=== PATIENT | male | born 1985 | race Caucasian/White ===

== ENCOUNTER 2021-11-04 04:59 | Emergency (ER) | payer OTHER, MEDICAID, SELFPAY ==
[2021-11-04 05:03] VITALS: BP 108/64; PULSE 75; RESP 18; TEMP 36.6; O2SAT 98
--- NOTE | 2021-11-04 05:32 | ED.GENADUL_ITS ---
Discharge Plan Disposition Patient Disposition: HOME Condition: Improving Discharge Details Chief Complaint: Nk/Back Pain Clinical Impression: Back pain Primary Care Provider: Unknown,Unknown ED Provider: Walter Lomeli Home Meds and New Rx's Prescriptions: No Action methadone 10 mg/5 mL solution 75 mg PO DAILY cyclobenzaprine 10 mg tablet 10 mg PO HS PRN (Reason: muscle spasm) Qty: 10 0RF Discharge Instructions Instructions: Back Pain (ED) Additional Instructions: Please follow-up with primary care physician referral. Stand Alone Forms: Work Release Medical Decision Making 36-year-old male history of opioid abuse currently on methadone, no recent change in dose, presents with acute on chronic lower back pain endorses remote injury at work several months ago, improvement on its own and with steroids in the past, recently visited urgent care for evaluation and was prescribed cyclobenzaprine and a steroid with some improvement, symptoms returned over the last several days, denies bowel or bladder incontinence denies numbness or weakness in lower extremities, no midline spinal tenderness on examination, no external signs of trauma, moving all extremities 5 out of 5 strength, alert oriented afebrile. Likely muscle spasm versus consider mildly herniated disc versus muscle strain versus sprain, low suspicion for UTI pyelonephritis or kidney stone, given patient's history of substance abuse must also consider or serious issue such as discitis or osteomyelitis of the spine or spinal epidural abscess however all of these are less likely given history and physical as well as normal vital signs and examination. We will send screening labs to assess for any elevation of white blood cells, will also send UA, will provide analgesia and anti-inflammatory in the form of Toradol and dexamethasone as well as Lidoderm patch. Likely will be discharged home with follow-up. 6: 11 patient resting comfortably no acute distress feeling relief after medications. Labs unremarkable. Likely muscle strain versus mild bulging disc. Lower suspicion for infectious process or acute neurologic process. Home care instructions and return precautions given. Will be connected with primary care physician in the community. HPI General Date/Time Provider Initiated Documentation: 11/04/21 05:08 . HPI Narrative: 36-year-old male history of opioid abuse, currently on methadone, presents with acute on chronic lower back pain hip pain and abdominal pain, endorses tweaking his back at work earlier this year favoring his right side, denies falls denies leg weakness or numbness, denies bowel or bladder incontinence, is ambulatory without assistance, denies fevers or chills. Had a prior evaluation as an outpatient improved after muscle relaxer and steroid Related Data Home Medications Medication Instructions Recorded Confirmed cyclobenzaprine 10 mg tablet 10 mg PO HS PRN muscle spasm #10 08/30/21 11/04/21 tabs methadone 10 mg/5 mL oral solution 75 mg PO DAILY 08/30/21 11/04/21 Previous Rx's Medication Instructions Recorded cyclobenzaprine 10 mg tablet 10 mg PO HS PRN muscle spasm #10 08/30/21 tabs Allergies Allergy/AdvReac Type Severity Reaction Status Date / Time No Known Allergies Allergy Unverified 11/04/21 05:06 General Stated Complaint: Nk/Back Pain BRAD: 4 Review of Systems Narrative: Review of Systems Constitutional: negative Eyes: negative ENT: negative Cardiovascular: negative Respiratory: negative Gastrointestinal: Abdominal pain : negative Musculoskeletal: Back pain Skin: negative Neurologic: negative Psych: negative PFSH All Active Problems (Updated 11/04/21 @ 06:13 by Walter Lomeli MD) Back pain (Acute) Social History Smoking/Tobacco Use Status: Current every day Smoking risk assessment performed?: Yes Alcohol Intake: current Alcohol Intake frequency: a few times a week Alcohol type: beer Drug use: Occasionally Substance use type: opiates Do you feel safe at home: Yes Do you feel safe in your relationship?: Yes Exam Narrative Exam Narrative: Physical Examination General: alert, awake, cooperative, slightly restless appears mildly uncomfortable HEENT: normocephalic, atraumatic; PERRL, EOM intact, conjunctiva normal; no nasal discharge; moist mucous membranes, oral and pharyngeal mucosa normal, tolerating secretions Neck: supple, trachea midline; full ROM Chest: normal to inspection Respiratory: normal respiratory effort, speaking in full sentences, clear to auscultation, no wheezing, rales or rhonchi Cardiac: regular rate, regular rhythm, S1S2 intact, no murmurs rubs or gallops GI: abdomen soft, non-tender, non-distended; no palpable mass or hepatosplenomegaly Back: No midline spinal tenderness crepitus or deformity Skin: no lesions, rashes or trauma appreciated Neuro: AAOx3, normal speech, moving all extremities; 5/5 strength upper and lower extremities bilaterally Extremities: Moving all extremities, no signs of trauma Psych: Appropriate mood and affect Course Vital Signs Vital signs: Vital Signs Temperature 36.6 C 11/04/21 05:03 Pulse 75 11/04/21 05:03 Respiratory Rate 18 11/04/21 05:03 Blood Pressure 108/64 11/04/21 05:03 Pulse Oximetry 98 11/04/21 05:03 Temperature 36.6 C 11/04/21 05:03 Pulse 75 11/04/21 05:03 Respiratory Rate 18 11/04/21 05:03 Respiratory Effort Non-Labored 11/04/21 05:07 Blood Pressure 108/64 11/04/21 05:03 Pulse Oximetry 98 11/04/21 05:03 Pain Level 8 11/04/21 05:07
[2021-11-04 05:39] LABS: Abs Immature Grans 0.01 10^3/uL (0.0-0.06); Absolute Basophil Count 0.02 10^3/uL (0.0-0.2); Absolute Eosinophil Count 0.23 10^3/uL (0.0-0.7); Absolute Lymphocyte Count 1.15 10^3/uL (1.2-3.4); Absolute Monocyte Count 0.47 10^3/uL (0.1-0.8); Absolute Neutrophil Count 4.53 10^3/uL (1.2-6.7); Basophils % 0.3; Eosinophils % 3.6; HGB 10.6 g/dL (13.5-17.5); Immature Grans % 0.2; Lymphocytes % 17.9; MCH 26.6 pg (27.0-33.0); MCHC 33.1 % (32.0-36.0); MCV 80 fL (80-95); MPV 9.4 fL (8.0-11.0); Monocytes % 7.3; Neutrophils % 70.7; Platelet Count 290 10^3/uL (130-400); RBC 3.99 10^6/uL (4.36-5.78); RDW 15.1 % (11.8-14.1); RDW-SD 44.6 fL; WBC 6.41 10^3/uL (4.4-10.8)
[2021-11-04 05:41] LABS: Bilirubin Negative (Negative); Blood Negative (Negative); Clarity Clear (Clear); Glucose Negative (Negative); Ketones Negative (Negative); Leukocyte Esterase Negative (Negative); Nitrite Negative (Negative); Specific Gravity 1.025 (1.005-1.025); Urobilinogen >=8.0 EU/dL (Up TO 0.2)
[2021-11-04] MEDS: Ketorolac 15 MG/ML VIAL IVP (05:41)
[2021-11-04] MEDS: Lidocaine 5% Patch 1 PATCH TP (05:41)
[2021-11-04] MEDS: Dexamethasone 10 MG/ML VIAL IVP (05:41)
[2021-11-04 05:55] LABS: ALT 29 U/L (16-63); AST 23 U/L (15-37); Albumin 3.4 g/dL (3.4-5.0); Alkaline Phosphatase 114 U/L (46-116); Anion Gap 7.9 mmol/L (3-11); BUN 10 mg/dL (7-18); Bilirubin, Total 0.4 mg/dL (0.2-1.0); CO2 31.1 mmol/L (21.0-32.0); CREATININE 0.9 mg/dL (0.70-1.30); Calcium 9.2 mg/dL (8.5-10.1); Chloride 100 mmol/L (98-107); Estimated GFR 114.22 (mL/min/1.73m2); Glucose 98 mg/dL (74-106); Potassium 3.4 mmol/L (3.5-5.1); Sodium 139 mmol/L (136-145); Total Protein 8.5 g/dL (6.4-8.2)
[2021-11-04 06:14] VITALS: BP 103/49; PULSE 61; RESP 18; O2SAT 97
--- NOTE | 2021-11-04 06:35 | NUR.NOTE ---
referral to [facility] Care Management to establish pcp in the next couple of weeks for neck, back and hip pain.Nursing Note:
== END 2021-11-04 06:20 | disposition home or self-care (01) ==
PROVIDERS: Emergency Provider Emergency Medicine
DX: G89.11 Acute pain due to trauma (principal); G89.29 Other chronic pain; M54.50 Low back pain, unspecified; F17.200 Nicotine dependence, unspecified, uncomplicated; X50.1XXA Overexertion from prolonged static or awkward postures, initial encounter; Y99.0 Civilian activity done for income or pay
CPT/HCPCS: 80053; 96374; 96375; 99284; 81003; 85025; J1100; J1885

== ENCOUNTER 2021-11-09 18:59 | Emergency (ER) | payer OTHER, MEDICAID, SELFPAY ==
[2021-11-09 19:22] VITALS: BP 109/59; PULSE 79; RESP 18; TEMP 36.8; O2SAT 99
--- NOTE | 2021-11-09 21:14 | ED.GENADUL_ITS ---
Discharge Plan Disposition Patient Disposition: HOME Condition: Stable Discharge Details Clinical Impression: Back pain, Hip pain, right Primary Care Provider: Unknown,Unknown ED Provider: Baldev Carpenter Home Meds and New Rx's Prescriptions: New prednisone 20 mg tablet 60 mg PO DAILY 5 Days Qty: 15 0RF naproxen [Naprosyn] 500 mg tablet 500 mg PO BID Qty: 14 0RF Continued methadone 10 mg/5 mL solution 75 mg PO DAILY Discharge Instructions Instructions: Back Pain (ED), Hip Pain (ED) Additional Instructions: Prednisone and Naprosyn as directed. Rest, elevate, cool compresses every 2 hours for 20 minutes. Cool and/or warm compresses every 2 hours for 20 minutes. Please watch for new or worsening symptoms and return to the ER for any concerns. Please call the career development facilitator back tomorrow so they can help you establish a local primary care provider. Stand Alone Forms: Work Release Medical Decision Making He 36-year-old gentleman presents for chronic back pain now associated with right hip pain, denies any injury. He is specifically requesting a prescription of prednisone which is helped him in the past and requesting a work note for the next few days. Clinically he appears well, nontoxic, no evidence of septic joint, infectious process, rash, neurologic deficit, etc. Patient recently seen in the ER and did have a work-up done. Given his reassuring evaluation this evening in the setting of recent work-up, I see no clear indication to repeat this. Extremely low suspicion for infectious process. Patient tells me that he is to call the career development facilitator back to help expedite outpatient primary care fol low-up. Standard discharge and return precautions were provided. Patient understands, is agreeable to this plan, and has no additional questions or concerns upon discharge. This documentation was generated using [employer] system, please disregard any oddities of phrase or misspellings. Medical Records Medical records reviewed: Yes I reviewed the patient's medical records. HPI General Mode of arrival: ambulatory . Date/Time Provider Initiated Documentation: 11/09/21 19:28 . Limitations to Documentation: no limitations . Information obtained by: patient . HPI Narrative: This is a 36-year-old gentleman with [place] history of opiate abuse, presenting to the ER reporting ongoing chronic back pain since April this year, causing him to walk differently now with right hip pain, requesting a work note for the next few days as well as a prescription for prednisone which is worked well for him in the past. He denies recent illness or trauma. He states he was seen recently for his back pain, given anti-inflammatory medication as well as Lidoderm patches but not steroids. He denies fever, abdominal pain, change in bowel or bladder function, radiation of pain down his leg, numbness, tingling, weakness, skin rash Related Data Home Medications Medication Instructions Recorded Confirmed methadone 10 mg/5 mL oral solution 75 mg PO DAILY 08/30/21 11/09/21 naproxen 500 mg tablet (Naprosyn) 500 mg PO BID #14 tabs 11/09/21 prednisone 20 mg tablet 60 mg PO DAILY 5 days #15 tabs 11/09/21 Previous Rx's Medication Instructions Recorded naproxen 500 mg tablet (Naprosyn) 500 mg PO BID #14 tabs 11/09/21 prednisone 20 mg tablet 60 mg PO DAILY 5 days #15 tabs 11/09/21 Allergies Allergy/AdvReac Type Severity Reaction Status Date / Time No Known Allergies Allergy Unverified 11/09/21 19:26 General Stated Complaint: Nk/Back Pain BRAD: 4 Review of Systems Constitutional Constitutional: Denies fever(s) and Denies weakness Cardiovascular Cardiovascular: Denies chest pain and Denies dyspnea Respiratory Respiratory: Denies cough and Denies dyspnea Gastrointestinal Gastrointestinal: Denies abdominal pain, Denies nausea and Denies vomiting Genitourinary Genitourinary: Denies dysuria Musculoskeletal Musculoskeletal: Reports back pain, Denies numbness, Denies stiffness and Denies tingling Integumentary/Breasts Skin/Breast: Denies rash Neurologic Neurologic: Denies numbness, Denies tingling and Denies weakness PFSH All Active Problems Back pain (Acute) Hip pain, right (Acute) Social History Smoking/Tobacco Use Status: Current every day Tobacco Type: cigarettes Smoking risk assessment performed?: Yes Alcohol Intake: current Alcohol Intake frequency: a few times a week Alcohol type: beer Drug use: Occasionally Substance use type: opiates Do you feel safe at home: Yes Do you feel safe in your relationship?: Yes Exam Const General: cooperative, healthy appearing, comfortable and no acute distress Orientation: alert and awake [facility] Head: normal to inspection, normocephalic and atraumatic Eyes Conjunctivae: conjunctivae normal Neck Neck: normal visual inspection, full ROM, no meningeal signs, trachea midline and supple Resp Effort & Inspection: normal respiratory effort and able to speak in complete sentences Auscultation: clear to auscultation bilaterally Cardio Rate: regular rate Rhythm: regular rhythm GI Palpation: soft and nontender Back/Spine/Pelvis Back: no CVA tenderness and back tenderness (Diffuse lumbar, slightly worse on the right) Thoracic/Lumbar Spine: straight leg raise positive (Right, 10 degrees. Left negative) Other: No midline point tenderness Skin General skin exam: no rashes or lesions noted Neuro General: patient alert, patient awake, moves all extremities and no focal motor deficits Cognition: normal cognition Speech: speech normal Gait: normal gait Motor: muscle tone normal throughout Sensory Exam: no sensory deficits noted Extrem General: normal to inspection, full ROM, capillary refill normal, no pedal edema and no calf tenderness Other: Diffuse mild right-sided hip discomfort Psych Appearance: grossly normal Mental Status: mental status grossly normal Course Vital Signs Vital signs: Vital Signs Temperature 36.8 C 11/09/21 19:22 Pulse 79 11/09/21 19:22 Respiratory Rate 18 11/09/21 19:22 Blood Pressure 109/59 L 11/09/21 19:22 Pulse Oximetry 99 11/09/21 19:22 Temperature 36.8 C 11/09/21 19:22 Temperature Source Skin 11/09/21 19:22 Pulse 79 11/09/21 19:22 Respiratory Rate 18 11/09/21 19:22 Respiratory Effort Non-Labored 11/09/21 19:27 Blood Pressure 109/59 L 11/09/21 19:22 Pulse Oximetry 99 11/09/21 19:22 Pain Level 8 11/09/21 19:22 PAWSS Have you Been Recently Intoxicated or Drunk Within the Last 30 days?: No Have you Ever Experienced Previous Episodes of Alcohol Withdrawal?: No Have you ever Experienced Withdrawal Seizures?: No Have you ever Experienced Delirium Tremens(DT)s?: No Have you ever undergone Alcohol Rehabilitation Treatment (i.e, inpt ot outpatient treatment programs)?: No Have you ever Experienced Blackouts?: No Have you ever Combined Alcohol with other Downers within the last 90 days?: No Have you ever Combined Alcohol with any other Substance of Abuse during the last 90 days?: No Positive Blood Alcohol level on Presentation? [PCS.BAL]: No Evidence of Increased Autonomic Activity (i.e. HR>120, tremor, sweating, agitation, nausea)?: No Result: 0
== END 2021-11-09 21:40 | disposition home or self-care (01) ==
PROVIDERS: Emergency Provider Physician Assistant
DX: M25.551 Pain in right hip (principal); M54.9 Dorsalgia, unspecified; G89.29 Other chronic pain; F17.210 Nicotine dependence, cigarettes, uncomplicated
CPT/HCPCS: 99283; 99284